=== PATIENT | male | born 1970 | race Caucasian/White ===

== ENCOUNTER 2018-08-09 04:32 | Inpatient (IN) | payer BC ==
[2018-08-09] MEDS: LORAZEPAM 2 MG INJ IV ×2 (05:50→14:32)
[2018-08-09] MEDS ORDERED: ALBUTEROL/IPRATROPIUM (NEB) 3 ML AMP HHN (06:00)
[2018-08-09] MEDS ORDERED: ACETAMINOPHEN 325 MG TAB PO (06:00)
[2018-08-09] MEDS ORDERED: VANCOMYCIN IV PER PHARMACY XX (06:00)
[2018-08-09] MEDS ORDERED: NACL 0.9% 3 ML SYG IV (06:00)
[2018-08-09] MEDS ORDERED: ONDANSETRON 4 MG INJ IV (06:00)
[2018-08-09 06:47] LABS: ADD MAN DIFF? NO
[2018-08-09 06:50] LABS: WHITE BLOOD COUNT 3.7 10^3/ul (4.8-10.8)
[2018-08-09 06:50] LABS: BASOPHILS % 1.1 % (0.0-2.0); EOSINOPHILS # 0.1 10^3/ul (0.0-0.5); EOSINOPHILS % 1.6 % (0.0-7.0); HEMATOCRIT 37.9 % (42.0-52.0); HEMOGLOBIN 12.7 g/dl (14.0-18.0); LYMPHOCYTES % 27.8 % (15.0-51.0); MEAN CORPUSCULAR HEMOGLOBIN 30.3 pg (29.0-33.0); MEAN CORPUSCULAR HGB CONC 33.5 g/dl (32.0-37.0); MEAN CORPUSCULAR VOLUME 90.5 fl (82.0-101.0); MEAN PLATELET VOLUME 10.9 fl (7.4-10.4); MONOCYTE # 0.3 10^3/ul (0.3-0.9); MONOCYTES % 7.8 % (0.0-11.0); NEUTROPHIL # 2.3 10^3/ul (1.6-7.5); NEUTROPHILS % 61.4 % (39.0-77.0); PLATELET COUNT 221 10^3/UL (140-415); RED BLOOD COUNT 4.19 10^6/ul (4.70-6.10); RED CELL DISTRIBUTION WIDTH 16.9 % (11.5-14.5)
[2018-08-09 07:06] LABS: CREATINE KINASE 254 IU/L (23-200)
[2018-08-09 07:07] LABS: HEMOGLOBIN A1C 5.7 % (0-5.9)
[2018-08-09 07:10] LABS: ALANINE AMINOTRANSFERASE 60 IU/L (13-69); ALBUMIN 3.9 g/dl (3.3-4.9); ALBUMIN/GLOBULIN RATIO 1.21; ALKALINE PHOSPHATASE 70 IU/L (42-121); ANION GAP 8 (5-13); ASPARTATE AMINO TRANSFERASE 55 IU/L (15-46); BILIRUBIN,INDIRECT 0.9 mg/dl (0-1.1); BILIRUBIN,TOTAL 0.9 mg/dl (0.2-1.3); BLOOD UREA NITROGEN 19 mg/dl (7-20); CARBON DIOXIDE 26 mmol/L (21-31); CHLORIDE 108 mmol/L (97-110); CHOL/HDL RATIO 3.8 RATIO; CHOLESTEROL 179 mg/dl (100-200); Estimated GFR > 60 mL/min (>60); GLUCOSE 101 mg/dl (70-220); HDL CHOLESTEROL 47 mg/dl (27-67); LDL CHOLESTEROL,CALCULATED 115 mg/dl; POTASSIUM 3.9 mmol/L (3.5-5.1); SODIUM 142 mmol/L (135-144); TOTAL PROTEIN 7.1 g/dl (6.1-8.1); TRIGLYCERIDES 87 mg/dl (0-149)
[2018-08-09 07:20] LABS: CK INDEX 1.4; TROPONIN-I < 0.012 ng/ml (0.000-0.120)
[2018-08-09 07:24] LABS: CK-MB 3.64 ng/ml (0.0-2.4)
[2018-08-09] MEDS: ARIPIPRAZOLE 5 MG TAB PO (08:41)
[2018-08-09] MEDS: CEFEPIME 1GM/50 ML (PMX) 50 ML IVPB ×2 (08:41→20:30)
[2018-08-09] MEDS: FERROUS GLUCONATE (EC) 325 MG TAB PO ×3 (08:41→20:31)
[2018-08-09] MEDS: FOLIC ACID 1 MG TAB PO (08:41)
[2018-08-09] MEDS: LISINOPRIL 10 MG TAB PO (08:42)
[2018-08-09] MEDS: SERTRALINE 50 MG TAB PO (08:43)
[2018-08-09] MEDS: THIAMINE 100 MG TAB PO (08:43)
[2018-08-09] MEDS: MULTIVITAMINS THERAPEUTIC TAB PO (08:43)
[2018-08-09] MEDS: CHLORDIAZEPOXIDE 25 MG CAP PO ×3 (08:46→20:31)
[2018-08-09] MEDS: HEPARIN 5,000 UNIT/1 ML VIAL SC ×2 (09:11→21:36)
[2018-08-09 12:04] LABS: CREATINE KINASE 207 IU/L (23-200)
[2018-08-09 12:10] LABS: ETHANOL < 10.0 mg/dl (0-0)
[2018-08-09 12:18] LABS: CK INDEX 1.4; TROPONIN-I < 0.012 ng/ml (0.000-0.120)
[2018-08-09 12:22] LABS: CK-MB 2.93 ng/ml (0.0-2.4)
[2018-08-09] MEDS: VANCOMYCIN HCL 1.25 GM in SOD CHLORIDE 0.9% 250 ML IVPB (14:28)
[2018-08-09] MEDS: ATORVASTATIN 80 MG TAB PO (20:31)
[2018-08-10] MEDS: VANCOMYCIN HCL 1.25 GM in SOD CHLORIDE 0.9% 250 ML IVPB ×2 (01:59→14:08)
[2018-08-10] MEDS: LORAZEPAM 2 MG INJ IV ×2 (03:14→22:23)
[2018-08-10 05:59] LABS: ADD MAN DIFF? NO
[2018-08-10 06:15] LABS: WHITE BLOOD COUNT 3.1 10^3/ul (4.8-10.8)
[2018-08-10 06:15] LABS: EOSINOPHILS # 0.1 10^3/ul (0.0-0.5); EOSINOPHILS % 4.5 % (0.0-7.0); HEMATOCRIT 38.3 % (42.0-52.0); HEMOGLOBIN 12.7 g/dl (14.0-18.0); LYMPHOCYTES # 1.2 10^3/ul (0.8-2.9); LYMPHOCYTES % 38.2 % (15.0-51.0); MEAN CORPUSCULAR HEMOGLOBIN 30.4 pg (29.0-33.0); MEAN CORPUSCULAR HGB CONC 33.2 g/dl (32.0-37.0); MEAN CORPUSCULAR VOLUME 91.6 fl (82.0-101.0); MEAN PLATELET VOLUME 10.8 fl (7.4-10.4); MONOCYTE # 0.3 10^3/ul (0.3-0.9); MONOCYTES % 10.8 % (0.0-11.0); NEUTROPHIL # 1.4 10^3/ul (1.6-7.5); NEUTROPHILS % 45.5 % (39.0-77.0); PLATELET COUNT 214 10^3/UL (140-415); RED BLOOD COUNT 4.18 10^6/ul (4.70-6.10); RED CELL DISTRIBUTION WIDTH 15.9 % (11.5-14.5)
[2018-08-10 06:49] LABS: ANION GAP 10 (5-13); BLOOD UREA NITROGEN 18 mg/dl (7-20); CALCIUM 8.8 mg/dl (8.4-10.2); CARBON DIOXIDE 26 mmol/L (21-31); CHLORIDE 104 mmol/L (97-110); CREATININE 0.65 mg/dl (0.61-1.24); Estimated GFR > 60 mL/min (>60); GLUCOSE 139 mg/dl (70-220); MAGNESIUM 1.6 mg/dl (1.7-2.5); PHOSPHORUS 2.5 mg/dl (2.5-4.9); POTASSIUM 3.5 mmol/L (3.5-5.1); SODIUM 140 mmol/L (135-144)
[2018-08-10] MEDS: SERTRALINE 50 MG TAB PO (08:39)
[2018-08-10] MEDS: CEFEPIME 1GM/50 ML (PMX) 50 ML IVPB ×2 (08:39→20:32)
[2018-08-10] MEDS: ARIPIPRAZOLE 5 MG TAB PO (08:39)
[2018-08-10] MEDS: THIAMINE 100 MG TAB PO (08:39)
[2018-08-10] MEDS: CHLORDIAZEPOXIDE 25 MG CAP PO ×3 (08:40→20:29)
[2018-08-10] MEDS: FERROUS GLUCONATE (EC) 325 MG TAB PO ×3 (08:40→20:30)
[2018-08-10] MEDS: LISINOPRIL 10 MG TAB PO (08:40)
[2018-08-10] MEDS: FOLIC ACID 1 MG TAB PO (08:40)
[2018-08-10] MEDS: MULTIVITAMINS THERAPEUTIC TAB PO (08:40)
[2018-08-10] MEDS: HEPARIN 5,000 UNIT/1 ML VIAL SC ×2 (08:55→20:41)
[2018-08-10] MEDS: MAGNESIUM SULFATE 1 GM/D5W 100 ML IVPB (12:28)
[2018-08-10] MEDS: ATORVASTATIN 80 MG TAB PO (20:29)
[2018-08-11 01:49] LABS: VANCOMYCIN,TROUGH 8.1 ug/ml (10.0-20.0)
[2018-08-11] MEDS: VANCOMYCIN HCL 1.25 GM in SOD CHLORIDE 0.9% 250 ML IVPB (02:25)
[2018-08-11] MEDS: LORAZEPAM 2 MG INJ IV ×2 (04:12→16:31)
[2018-08-11 06:18] LABS: ADD MAN DIFF? NO
[2018-08-11 06:32] LABS: EOSINOPHILS # 0.2 10^3/ul (0.0-0.5); EOSINOPHILS % 5.4 % (0.0-7.0); HEMATOCRIT 41.2 % (42.0-52.0); HEMOGLOBIN 13.6 g/dl (14.0-18.0); LYMPHOCYTES # 1.3 10^3/ul (0.8-2.9); LYMPHOCYTES % 32.9 % (15.0-51.0); MEAN CORPUSCULAR HEMOGLOBIN 29.9 pg (29.0-33.0); MEAN CORPUSCULAR VOLUME 90.5 fl (82.0-101.0); MEAN PLATELET VOLUME 11.1 fl (7.4-10.4); MONOCYTE # 0.3 10^3/ul (0.3-0.9); MONOCYTES % 8.2 % (0.0-11.0); NEUTROPHIL # 2.1 10^3/ul (1.6-7.5); NEUTROPHILS % 52.3 % (39.0-77.0); PLATELET COUNT 247 10^3/UL (140-415); RED BLOOD COUNT 4.55 10^6/ul (4.70-6.10); RED CELL DISTRIBUTION WIDTH 15.6 % (11.5-14.5)
[2018-08-11] MEDS ORDERED: PROPOFOL 200 MG INJ (07:00)
[2018-08-11 07:03] LABS: ANION GAP 11 (5-13); BLOOD UREA NITROGEN 14 mg/dl (7-20); CALCIUM 9.4 mg/dl (8.4-10.2); CARBON DIOXIDE 23 mmol/L (21-31); CHLORIDE 107 mmol/L (97-110); CREATININE 0.63 mg/dl (0.61-1.24); Estimated GFR > 60 mL/min (>60); GLUCOSE 107 mg/dl (70-220); MAGNESIUM 1.8 mg/dl (1.7-2.5); PHOSPHORUS 3.4 mg/dl (2.5-4.9); SODIUM 141 mmol/L (135-144)
[2018-08-11] MEDS: CEFEPIME 1GM/50 ML (PMX) 50 ML IVPB ×2 (08:06→21:05)
[2018-08-11] MEDS ORDERED: LIDOCAINE 2% (SDV) 5 ML INJ (08:37)
[2018-08-11] MEDS ORDERED: PROPOFOL 20 ML (08:37)
[2018-08-11] MEDS ORDERED: MIDAZOLAM 1 MG/ML 2 ML INJ IV (09:00)
[2018-08-11] MEDS ORDERED: ONDANSETRON 4 MG INJ IV (09:00)
[2018-08-11] MEDS ORDERED: FENTAnyl 50 MCG/ML VIAL IV ×3 (09:00)
[2018-08-11] MEDS: CHLORDIAZEPOXIDE 25 MG CAP PO ×3 (13:00→21:08)
[2018-08-11] MEDS: FERROUS GLUCONATE (EC) 325 MG TAB PO ×3 (13:00→21:08)
[2018-08-11] MEDS: ARIPIPRAZOLE 5 MG TAB PO (13:43)
[2018-08-11] MEDS: SERTRALINE 50 MG TAB PO (13:43)
[2018-08-11] MEDS: FOLIC ACID 1 MG TAB PO (13:44)
[2018-08-11] MEDS: MULTIVITAMINS THERAPEUTIC TAB PO (13:44)
[2018-08-11] MEDS: THIAMINE 100 MG TAB PO (13:44)
[2018-08-11] MEDS: HEPARIN 5,000 UNIT/1 ML VIAL SC ×2 (14:18→21:43)
[2018-08-11] MEDS: VANCOMYCIN 1 GM 250 ML IVPB ×2 (16:07→18:54)
[2018-08-11] MEDS: ATORVASTATIN 80 MG TAB PO (21:08)
[2018-08-12] MEDS: VANCOMYCIN 1 GM 250 ML IVPB ×2 (02:31→10:33)
[2018-08-12] MEDS: LORAZEPAM 2 MG INJ IV (04:54)
[2018-08-12 05:59] LABS: ADD MAN DIFF? NO
[2018-08-12 06:01] LABS: BASOPHIL # 0.1 10^3/ul (0.0-0.1); BASOPHILS % 0.7 % (0.0-2.0); EOSINOPHILS # 0.2 10^3/ul (0.0-0.5); EOSINOPHILS % 3.3 % (0.0-7.0); HEMATOCRIT 40.6 % (42.0-52.0); HEMOGLOBIN 13.6 g/dl (14.0-18.0); LYMPHOCYTES # 1.5 10^3/ul (0.8-2.9); LYMPHOCYTES % 21.7 % (15.0-51.0); MEAN CORPUSCULAR HEMOGLOBIN 30.8 pg (29.0-33.0); MEAN CORPUSCULAR HGB CONC 33.5 g/dl (32.0-37.0); MEAN CORPUSCULAR VOLUME 92.1 fl (82.0-101.0); MEAN PLATELET VOLUME 10.4 fl (7.4-10.4); MONOCYTE # 0.5 10^3/ul (0.3-0.9); MONOCYTES % 6.5 % (0.0-11.0); NEUTROPHIL # 4.7 10^3/ul (1.6-7.5); NEUTROPHILS % 67.4 % (39.0-77.0); PLATELET COUNT 215 10^3/UL (140-415); RED BLOOD COUNT 4.41 10^6/ul (4.70-6.10); RED CELL DISTRIBUTION WIDTH 15.6 % (11.5-14.5)
[2018-08-12 06:22] LABS: ANION GAP 11 (5-13); BLOOD UREA NITROGEN 18 mg/dl (7-20); CALCIUM 9.4 mg/dl (8.4-10.2); CARBON DIOXIDE 24 mmol/L (21-31); CHLORIDE 104 mmol/L (97-110); CREATININE 0.72 mg/dl (0.61-1.24); Estimated GFR > 60 mL/min (>60); GLUCOSE 111 mg/dl (70-220); SODIUM 139 mmol/L (135-144)
[2018-08-12] MEDS: CEFEPIME 1GM/50 ML (PMX) 50 ML IVPB (09:06)
[2018-08-12] MEDS: CHLORDIAZEPOXIDE 25 MG CAP PO (09:07)
[2018-08-12] MEDS: MULTIVITAMINS THERAPEUTIC TAB PO (09:07)
[2018-08-12] MEDS: FOLIC ACID 1 MG TAB PO (09:07)
[2018-08-12] MEDS: ARIPIPRAZOLE 5 MG TAB PO (09:07)
[2018-08-12] MEDS: SERTRALINE 50 MG TAB PO (09:08)
[2018-08-12] MEDS: FERROUS GLUCONATE (EC) 325 MG TAB PO (09:08)
[2018-08-12] MEDS: LISINOPRIL 20 MG TAB PO (09:09)
[2018-08-12] MEDS: THIAMINE 100 MG TAB PO (09:09)
[2018-08-12] MEDS: HEPARIN 5,000 UNIT/1 ML VIAL SC (09:51)
[2018-08-12 10:11] LABS: CREATININE 0.75 mg/dl (0.61-1.24)
[2018-08-12 10:11] LABS: BLOOD UREA NITROGEN 21 mg/dl (7-20)
== END 2018-08-12 13:30 | disposition left against medical advice (07) | DRG 872 ==
LOC: 6WM 04:32
PROC: B24BZZ4 Ultrasonography of Heart with Aorta, Transesophageal (ICD-10-PCS; principal; 2018-08-11 09:08)
DX: R78.81 Bacteremia (principal); F10.239 Alcohol dependence with withdrawal, unspecified; I42.9 Cardiomyopathy, unspecified; F10.229 Alcohol dependence with intoxication, unspecified; Z59.0 Homelessness; F14.10 Cocaine abuse, uncomplicated; I10 Essential (primary) hypertension; Z95.2 Presence of prosthetic heart valve; Z95.1 Presence of aortocoronary bypass graft; Y90.0 Blood alcohol level of less than 20 mg/100 ml; B95.7 Other staphylococcus as the cause of diseases classified elsewhere; B96.89 Other specified bacterial agents as the cause of diseases classified elsewhere; F15.10 Other stimulant abuse, uncomplicated; F14.90 Cocaine use, unspecified, uncomplicated
CPT/HCPCS: 80048; 80053; 80061; 80202; 80307; 82550; 82553; 82565; 83036; 83735; 84100; 84443; 84484; 84520; 85025; 87040; 93306; 93312; 93320; 93325; 97110; 97116; 97162